=== PATIENT | female | born 2000 | race Caucasian/White ===

== ENCOUNTER 2023-05-06 20:11 | Emergency (ER) | payer SELFPAY ==
[2023-05-06] MEDS ORDERED: Morphine 4 MG/ML VIAL ONE (20:53)
[2023-05-06] MEDS ORDERED: Ondansetron PF 4 MG/2 ML Vial ONE (20:54)
[2023-05-06 21:21] LABS: Bilirubin Neg (Negative); Blood, Urine 150 (Negative); Clarity Bloody (Clear); Glucose, Urine (Dipstick) Normal (Negative); Ketone, Urine Negative (Negative); Leukocyte Negative (Negative); Nitrite Negative (Negative); Protein, Urine (Dipstick) 500 mg/dl (Neg-Trace); Urobilinogen Normal mg/dL (Less than 2)
[2023-05-06 21:40] LABS: Bacteria/HPF Rare-Few HPF (None Seen); CAUTI Indications for Culture Pelvic or flank pain; RBC/HPF Greater than 50 HPF (0-3); Squamous Epithelial None Seen HPF (0-3); Urine Culture Reflex No No; WBC/HPF 0-3 HPF (0-3)
[2023-05-06] MEDS ORDERED: Ketorolac Tromethamine 30 MG/ML VIAL ONE (22:31)
== END 2023-05-06 23:35 | disposition home or self-care (01) ==
LOC: CSHERS 20:11
DX: O03.9 Complete or unspecified spontaneous abortion without complication (principal)
CPT/HCPCS: 36415; 76817; 81001; 84702; 86900; 86901; 96374; 96375; J1885; J2270; J2405

== ENCOUNTER 2024-08-20 14:54 | Inpatient (IN) | payer SELFPAY ==
[2024-08-20] MEDS ORDERED: Bupivacaine 0.25% HCL 30 ML VIAL ONE (15:00)
[2024-08-20] MEDS ORDERED: Bupivacaine/Epinephrine 0.25% 30 ML VIAL ONE (15:00)
[2024-08-20 15:04] VITALS: BMI 26.1
[2024-08-20] MEDS: Lactated Ringer's 1,000 ML IV SCH (15:05)
[2024-08-20] MEDS ORDERED: Diphenoxylate HCl/Atropine Tablet PO PRN ×2 (15:13)
[2024-08-20] MEDS ORDERED: Methylergonovine 0.2 MG/ML VIAL IM PRN ×2 (15:13→18:27)
[2024-08-20] MEDS ORDERED: hydrALAZINE 20 MG/ML VIAL SLOW IVP PRN ×2 (15:13→18:27)
[2024-08-20] MEDS ORDERED: Promethazine HCl 25 MG/ML VIAL IM PRN ×2 (15:13→16:32)
[2024-08-20] MEDS ORDERED: Misoprostol 200 MCG TAB PR PRN (15:13)
[2024-08-20] MEDS ORDERED: Tranexamic Acid 1,000 MG/10 ML VIAL IVP PRN (15:13)
[2024-08-20] MEDS ORDERED: fentaNYL 50 mcg/mL 1 mL Vial SLOW IVP PRN (15:13)
[2024-08-20] MEDS ORDERED: Ibuprofen 800 MG TAB PO PRN (15:13)
[2024-08-20] MEDS ORDERED: Lidocaine 1% (PF) 30 ML VIAL SC PRN (15:13)
[2024-08-20] MEDS ORDERED: Carboprost 250 MCG/ML AMP IM PRN (15:13)
[2024-08-20] MEDS ORDERED: Ondansetron PF 4 MG/2 ML Vial IVP PRN ×3 (15:13→18:27)
[2024-08-20] MEDS ORDERED: Oxytocin 30 units/NS 500 ML 500 ML IV SCH ×3 (15:15)
[2024-08-20 15:23] LABS: Hematocrit 37.7 % (34.9-44.5); Hemoglobin 13.4 g/dL (12.0-15.5); Mean Corpuscular HGB CONC 35.5 g/dL (32.0-36.0); Mean Corpuscular Hemoglobin 32.1 pg (27.0-33.0); Mean Corpuscular Volume 90.2 fL (81.6-98.3); Mean Platelet Volume 10.1 fL (7.4-10.4); Platelet Count 272 10x3/uL (150-450); RBC Distribution Width 12.8 % (11.5-14.5); Red Blood Cell (RBC) Count 4.18 10x6/uL (3.90-5.03); White Blood Cell (WBC) Count 17.57 10x3/uL (3.5-10.5)
[2024-08-20 15:56] LABS: HBsAg Index 0.26 S/CO (0-0.99); Hep B Surf Ag - L&D Non-Reactive S/CO (NonReactive)
[2024-08-20 15:58] LABS: Syphilis Antibody Nonreactive (Nonreactive); Syphilis Antibody Index 0.04 S/CO (<1.00 Non-Reactive)
[2024-08-20] MEDS: fentaNYL/Ropivacaine Epidural 100 ML ONE (16:00)
[2024-08-20] MEDS ORDERED: Lactated Ringer's 500 ML IV PRN (16:32)
[2024-08-20] MEDS ORDERED: diphenhydrAMINE 50 MG/ML VIAL IVP PRN (16:32)
[2024-08-20] MEDS ORDERED: Naloxone HCl 0.4 mg/ml Vial IVP PRN ×2 (16:32)
[2024-08-20] MEDS ORDERED: ePHEDrine Sulfate 50 MG/10 ML VIAL SLOW IVP PRN (16:32)
[2024-08-20] MEDS ORDERED: Acetaminophen 325 MG TAB PO PRN (16:32)
[2024-08-20] MEDS ORDERED: Moisturizing Cream (Eucerin) 113 GM JAR TOP PRN (16:32)
[2024-08-20] MEDS ORDERED: fentaNYL 2 mcg/Ropivacaine 0.2% Epidural 100 ML CADD EPIDURAL SCH (16:45)
[2024-08-20] MEDS ORDERED: Communication Order-Pharmacy FS SCH (16:45)
[2024-08-20] MEDS: Penicillin G Potassium 5 MILL.UNITS in Sodium Chloride 0.9% 100 ML IVPB SCH (17:28)
[2024-08-20 18:23] LABS: Analyzer IN Cardio CS NICU; RapidComm Collect By RN
[2024-08-20 18:25] LABS: Analyzer IN Cardio CS NICU; RapidComm Collect By RN; pH (Cord, venous) 7.265 (7.250-7.350)
[2024-08-20] MEDS ORDERED: Boostrix 0.5 ML (Tdap) VIAL (>/=7 yrs of age) IM ONE (18:27)
[2024-08-20] MEDS ORDERED: Methylergonovine 0.2 MG TAB PO PRN (18:27)
[2024-08-20] MEDS ORDERED: Misoprostol 200 MCG TAB VAG PRN (18:27)
[2024-08-20] MEDS ORDERED: diphenhydrAMINE 25 MG CAP PO PRN (18:27)
[2024-08-20] MEDS ORDERED: Milk Of Magnesia 30 ML UDCUP PO PRN (18:27)
[2024-08-20] MEDS ORDERED: Preparation H Ointment 28 GM TUBE PR PRN (18:27)
[2024-08-20] MEDS ORDERED: Bisacodyl 10 MG SUPP PR PRN (18:27)
[2024-08-20] MEDS: Oxytocin 30 units/NS 500 ML 500 ML ONE (19:25)
[2024-08-20] MEDS: Morphine PF 10 MG/10 ML VIAL ONE (19:25)
[2024-08-20] MEDS: Oxytocin 10 UNITS/ML VIAL ONE (19:26)
[2024-08-20] MEDS: PROPOFOL 0 ML ONE (19:26)
[2024-08-20] MEDS: Phenylephrine 40 MG/NS 250 ML 0 ML ONE (19:26)
[2024-08-20] MEDS: Ondansetron PF 4 MG/2 ML Vial ONE (19:26)
[2024-08-20] MEDS: Ketorolac Tromethamine 30 MG (1 mL) VIAL ONE (19:26)
[2024-08-20] MEDS: Dexamethasone 10 MG/ML VIAL ONE (19:26)
[2024-08-20] MEDS: SUCCINYLCHOLINE/SOD CL,ISO/PF 200 MG/10 ML SYRINGE FS ONE (19:27)
[2024-08-20] MEDS ORDERED: Penicillin G 2.5 MILL.units 2.5 MILL.UNITS in Premix 1 BAG IVPB SCH (21:30)
[2024-08-20] MEDS: Ibuprofen 800 MG TAB PO SCH (21:59)
[2024-08-20] MEDS: Docusate 100 MG CAP PO SCH (21:59)
[2024-08-21 05:35] LABS: Hematocrit 32.3 % (34.9-44.5); Hemoglobin 11.2 g/dL (12.0-15.5)
[2024-08-21] MEDS: Ferrous Sulfate 325 MG TAB PO SCH (08:51)
[2024-08-21] MEDS: Prenatal Vitamin 1 TAB PO SCH (09:22)
[2024-08-22 04:07] VITALS: TEMP 98.3
[2024-08-22 07:11] VITALS: BP 109/75
== END 2024-08-22 15:30 | disposition home or self-care (01) | DRG 807 ==
LOC: CSHLD 14:54 → CSHPP 21:40
PROVIDERS: ADMIT Obstetrics & Gynecology; ATTEND Obstetrics & Gynecology
PROC: 10E0XZZ Delivery of Products of Conception, External Approach (ICD-10-PCS; principal; 2024-08-20)
PROC: 3E0E7GC Introduction of Other Therapeutic Substance into Products of Conception, Via Natural or Artificial Opening (ICD-10-PCS; 2024-08-20)
DX: O60.14X0 Preterm labor third trimester with preterm delivery third trimester, not applicable or unspecified (principal); Z37.0 Single live birth; O76 Abnormality in fetal heart rate and rhythm complicating labor and delivery; O42.013 Preterm premature rupture of membranes, onset of labor within 24 hours of rupture, third trimester; O99.824 Streptococcus B carrier state complicating childbirth; D72.829 Elevated white blood cell count, unspecified; Z3A.36 36 weeks gestation of pregnancy
CPT/HCPCS: 36415; 51702; 82805; 85014; 85018; 85027; 86780; 86850; 86900; 86901; 87340; J0665; J1100; J1885; J2274; J2405; J2540; J2590; J2704; J7120